=== PATIENT | male | born 2000 | race Caucasian/White ===

== ENCOUNTER 2020-04-19 08:37 | Emergency (ER) | payer MEDICAID ==
[~2020-04-19] VITALS: Ht 172.7 cm; Wt 113.4 kg
[2020-04-19 08:57] VITALS: BP 143/72
--- NOTE | 2020-04-19 09:15 | NUR ---
20/M BIB SELF c/o intermitent mid chest pain 05/15 x 4 hours ago. denies n/v/d. pmh: denies
--- NOTE | 2020-04-19 09:19 | NUR ---
Patient being evaluated by DR NESS at [facility].
--- NOTE | 2020-04-19 09:20 | NUR ---
PT TAKEN TO X RAY
--- NOTE | 2020-04-19 09:40 | NUR ---
EKG AT TRIAGE ROOM.
[2020-04-19 09:51] VITALS: BP 143/72
--- NOTE | 2020-04-19 09:51 | NUR ---
Patient discharged with v/s stable. Written and verbal after care instructions given and explained. Patient alert, oriented and verbalized understanding of instructions. Ambulatory with steady gait. All questions addressed prior to discharge. ID band removed. Patient advised to follow up with PMD. Rx of PEPCID& NAPROSYN given. Patient educated on indication of medication including possible reaction and side effects. Opportunity to ask questions provided and answered.
== END 2020-04-19 09:51 | disposition home or self-care (01) ==
LOC: MED 08:37
DX: R07.89 Other chest pain (principal); R03.0 Elevated blood-pressure reading, without diagnosis of hypertension
CPT/HCPCS: 71045; 93005; 99283